=== PATIENT | male | born 1950 | race Caucasian/White ===

== ENCOUNTER 2018-06-30 08:30 | Emergency (ER) | payer MEDICARE ==
[~2018-06-30] VITALS: Ht 175.3 cm; Wt 69.5 kg
[2018-06-30] MEDS ORDERED: ALLO100T30 PO (08:59)
[2018-06-30] MEDS ORDERED: OMEP20TA62 PO (08:59)
[2018-06-30] MEDS ORDERED: AMLO5TAB7 PO (09:01)
[2018-06-30] MEDS ORDERED: PROB500T22 PO (09:01)
[2018-06-30] MEDS ORDERED: MELO15TA24 PO (09:01)
[2018-06-30 11:45] VITALS: BP 129/81
== END 2018-06-30 12:21 | disposition home or self-care (01) ==
LOC: ED 10:37
DX: K94.09 Other complications of colostomy (principal)
CPT/HCPCS: 99283

== ENCOUNTER → 2018-07-04 | Outpatient (CLI) | payer MEDICARE ==
[~2018-07-04] MED LIST: ALLO100T30 PO; AMLO5TAB7 PO; MELO15TA24 PO; OMEP20TA62 PO; PROB500T22 PO
== END | disposition home or self-care (01) ==
LOC: WOUND 07:38
PROVIDERS: ATTEND Nurse Practitioner Family
DX: Z93.3 Colostomy status (principal)
CPT/HCPCS: G0463

== ENCOUNTER → 2018-07-07 | Outpatient (CLI) | payer MEDICARE | END | disposition home or self-care (01) | LOC: WOUND 14:47 | PROVIDERS: ATTEND Family Medicine | DX: Z93.3 Colostomy status (principal) | CPT/HCPCS: G0463 ==

== ENCOUNTER 2019-06-13 16:01 | Inpatient (IN) | payer MEDICARE ==
[~2019-06-13] VITALS: Ht 175.3 cm; Wt 65.2 kg
[~2019-06-13 16:01] MED LIST changes: +ALLO300T PO; +AMLO-150 PO; -AMLO5TAB7 PO
--- NOTE | 2019-06-13 16:16 | NUR ---
PT BEGAN C/O SOB TODAY, S/P HERNIA REPAIR TUESDAY. PT STATES HE HAS NOT FELT RIGHT SINCE HIS SX, PT DENIES HOME O2 USE. PT WITH HX OF ASTHMA. PT DENIES CP AT THIS TIME.
[2019-06-13] MEDS ORDERED: SODIUM CHLORIDE 0.9%, 500ML IVBOLUS ONE (16:30)
[2019-06-13 16:55] LABS: BASOPHILS # (AUTO) 0.04 x10^3/uL (0-0.1); BASOPHILS % (AUTO) 1 % (0-1); EOSINOPHILS # (AUTO) 0.07 x10^3/uL (0-0.4); EOSINOPHILS % (AUTO) 1 % (1-7); LYMPHOCYTES # (AUTO) 1.33 x10^3/uL (1-3.4); LYMPHOCYTES % (AUTO) 15 % (22-44); MD NO; MEAN CORPUSCULAR HEMOGLOBIN 32.4 pg (27.5-34.5); MEAN CORPUSCULAR HGB CONC 33.2 g/dL (33.2-36.2); MEAN CORPUSCULAR VOLUME 97.6 fL (81-97); MEAN PLATELET VOLUME 7.7 fL (7.4-10.4); MONOCYTES # (AUTO) 0.78 x10^3/uL (0.2-0.8); MONOCYTES % (AUTO) 9 % (2-9); NEUTROPHILS % (AUTO) 76 % (42-75); PLATELET COUNT 255 x10^3/uL (130-400); RED CELL DISTRIBUTION WIDTH 13.4 % (9.4-14.8)
[2019-06-13 16:59] LABS: INTERNATIONAL NORMALIZED RATIO 0.96 (0.93-1.1); PROTHROMBIN TIME 10.1 Seconds (9.6-11.5)
[2019-06-13 17:01] LABS: ALBUMIN 3.3 g/dL (3.4-5.0); ANION GAP 9 mmol/L (5-15); CALCIUM 8.9 mg/dL (8.5-10.1); CHLORIDE 107 mmol/L (98-107)
[2019-06-13 17:05] LABS: TROPONIN I < 0.015 ng/mL (0.000-0.045)
--- NOTE | 2019-06-13 17:41 | NUR ---
PT TAKEN TO CT.
[2019-06-13] MEDS ORDERED: OMNIPAQUE 350 MG/ML, 100ML BOTTLE ONE (18:01)
--- NOTE | 2019-06-13 18:40 | NUR ---
PT BACK FROM CT, ASSISTED TO THE BR VIA WHEELCHAIR. CTA RESULTS BACK, PT PLACED FOR RECHECK
--- NOTE | 2019-06-13 18:57 | NUR ---
REPORT RC'VD FROM YAKOV CHAPA. ASSISTED PT BACK TO ROOM VIA . PT C/O DIFFICULTY VOIDING D/T SCROTAL EDEMA POST SURGERY.
[2019-06-13] MEDS ORDERED: POLYETHYLENE GLYCOL 17 GM PACKET PO PRN (20:00)
[2019-06-13] MEDS ORDERED: ONDANSETRON ODT 4 MG PO PRN (20:00)
[2019-06-13] MEDS ORDERED: ACETAMINOPHEN 325 MG TABLET PO PRN (20:00)
[2019-06-13] MEDS ORDERED: LORazepam 0.5MG TABLET PO ONE (20:00)
[2019-06-13] MEDS: SODIUM CHLORIDE FLUSH 10ML SYR IVF SCH (21:07)
[2019-06-14 02:45] VITALS: BP 128/85
[2019-06-14 06:13] LABS: BASOPHILS # (AUTO) 0.02 x10^3/uL (0-0.1); BASOPHILS % (AUTO) 0 % (0-1); EOSINOPHILS # (AUTO) 0.04 x10^3/uL (0-0.4); EOSINOPHILS % (AUTO) 1 % (1-7); LYMPHOCYTES # (AUTO) 1.38 x10^3/uL (1-3.4); LYMPHOCYTES % (AUTO) 14 % (22-44); MD NO; MEAN CORPUSCULAR HEMOGLOBIN 32.5 pg (27.5-34.5); MEAN CORPUSCULAR VOLUME 98.5 fL (81-97); MEAN PLATELET VOLUME 7.9 fL (7.4-10.4); MONOCYTES # (AUTO) 0.86 x10^3/uL (0.2-0.8); MONOCYTES % (AUTO) 9 % (2-9); NEUTROPHILS # (AUTO) 7.45 x10^3/uL (1.8-6.8); NEUTROPHILS % (AUTO) 76 % (42-75); PLATELET COUNT 235 x10^3/uL (130-400); RED BLOOD COUNT 3.98 x10^6/uL (4.38-5.82); RED CELL DISTRIBUTION WIDTH 13.7 % (9.4-14.8)
[2019-06-14 06:19] LABS: CALCIUM 8.5 mg/dL (8.5-10.1); CHLORIDE 107 mmol/L (98-107)
[2019-06-14 06:25] LABS: ALANINE AMINOTRANSFERASE 12 U/L (12-78); ALKALINE PHOSPHATASE 85 U/L (45-117); ANION GAP 8 mmol/L (5-15); CREATININE 0.74 mg/dL (0.7-1.3); TOTAL PROTEIN 6.7 g/dL (6.4-8.2)
[2019-06-14 08:41] VITALS: BP 121/79
[2019-06-14] MEDS: SODIUM CHLORIDE FLUSH 10ML SYR IVF SCH ×2 (09:00→20:15)
[2019-06-14] MEDS: SENNA/DOCUSATE TABLET PO SCH (09:30)
[2019-06-14] MEDS: PROBENECID 500 MG TABLET PO SCH (09:30)
[2019-06-14] MEDS: AMLODIPINE 5 MG TABLET PO SCH (09:30)
[2019-06-14] MEDS: ALLOPURINOL 300 MG TABLET PO SCH (09:30)
[2019-06-14] MEDS ORDERED: LORazepam 1MG TABLET PO PRN (13:30)
[2019-06-14 13:46] VITALS: BP 125/81
[2019-06-14] MEDS: BENZONATATE 100 MG CAPSULE PO SCH ×2 (14:49→20:14)
[2019-06-14] MEDS: BISACODYL 10 MG SUPP PR PRN (14:49)
[2019-06-14 19:18] VITALS: BP 106/73
[2019-06-15 04:07] VITALS: BP 132/85
[2019-06-15 05:56] LABS: BASOPHILS # (AUTO) 0.03 x10^3/uL (0-0.1); BASOPHILS % (AUTO) 0 % (0-1); EOSINOPHILS % (AUTO) 0 % (1-7); LYMPHOCYTES # (AUTO) 1.23 x10^3/uL (1-3.4); LYMPHOCYTES % (AUTO) 11 % (22-44); MD NO; MEAN CORPUSCULAR HEMOGLOBIN 32.5 pg (27.5-34.5); MEAN CORPUSCULAR HGB CONC 33.1 g/dL (33.2-36.2); MEAN CORPUSCULAR VOLUME 98.1 fL (81-97); MEAN PLATELET VOLUME 7.7 fL (7.4-10.4); MONOCYTES # (AUTO) 0.76 x10^3/uL (0.2-0.8); MONOCYTES % (AUTO) 7 % (2-9); NEUTROPHILS % (AUTO) 82 % (42-75); PLATELET COUNT 267 x10^3/uL (130-400); RED BLOOD COUNT 4.12 x10^6/uL (4.38-5.82); RED CELL DISTRIBUTION WIDTH 13.6 % (9.4-14.8)
[2019-06-15 06:08] LABS: ANION GAP 6 mmol/L (5-15); CALCIUM 8.9 mg/dL (8.5-10.1); CHLORIDE 109 mmol/L (98-107)
[2019-06-15 08:17] VITALS: BP 134/77
[2019-06-15] MEDS: BENZONATATE 100 MG CAPSULE PO SCH ×2 (08:31→16:35)
[2019-06-15] MEDS: ALLOPURINOL 300 MG TABLET PO SCH (08:31)
[2019-06-15] MEDS: PROBENECID 500 MG TABLET PO SCH (08:31)
[2019-06-15] MEDS: AMLODIPINE 5 MG TABLET PO SCH (08:31)
[2019-06-15] MEDS: SENNA/DOCUSATE TABLET PO SCH (08:40)
[2019-06-15] MEDS: SODIUM CHLORIDE FLUSH 10ML SYR IVF SCH (08:40)
[2019-06-15] MEDS ORDERED: PRED20TA PO (13:03)
[2019-06-15] MEDS ORDERED: GUAI200T37 PO (13:03)
[2019-06-15] MEDS ORDERED: BENZ-17 PO (13:03)
[2019-06-15] MEDS ORDERED: AZIT250T PO (13:03)
[2019-06-15] MEDS ORDERED: AZIT500T PO (13:03)
[2019-06-15 15:21] VITALS: BP 151/94
[2019-06-15] MEDS ORDERED: FLU VACC QS2019-20 36MOS UP/PF 0.5 ML IM-VACC ONE (15:30)
[2019-06-15] MEDS: BISACODYL 10 MG SUPP PR PRN (16:35)
== END 2019-06-15 18:22 | disposition home or self-care (01) | DRG 191 ==
LOC: ED 18:30 → EDIP 18:47 → 4WST 20:18 → 4EST 22:22
PROVIDERS: ADMIT Family Medicine; ATTEND Family Medicine
DX: J44.1 Chronic obstructive pulmonary disease with (acute) exacerbation (principal); E44.1 Mild protein-calorie malnutrition; F41.9 Anxiety disorder, unspecified; I10 Essential (primary) hypertension; M10.9 Gout, unspecified; D75.89 Other specified diseases of blood and blood-forming organs; N50.89 Other specified disorders of the male genital organs; K43.2 Incisional hernia without obstruction or gangrene; R00.0 Tachycardia, unspecified; N43.3 Hydrocele, unspecified; K40.90 Unilateral inguinal hernia, without obstruction or gangrene, not specified as recurrent; Z72.0 Tobacco use; Z87.11 Personal history of peptic ulcer disease; Z86.72 Personal history of thrombophlebitis
CPT/HCPCS: 36415; 71045; 71275; 76870; 80048; 80053; 82040; 82607; 84484; 85025; 85610; 85730; 90686; 93005; 93975; 99285; G0378; Q9967; J7040; J7512